=== PATIENT | male | born 1975 ===

== ENCOUNTER 2023-02-22 12:24 | Emergency (ER) | payer OTHER ==
--- OUTSIDE RECORDS SUMMARY | 2023-02-22 12:26 | XMS REPORT | Continuity of Care Document ---
:1975 Author Organization [facility] t Address [address] [facility] [address] [place] [address] Care Team Providers Name Role Phone Unavailable Unavailable Unavailable Problems This patient has no known problems. Allergies, Adverse Reactions, Alerts This patient has no known allergies or adverse reactions. Medications This patient has no known medications. Procedures This patient has no known procedures. Encounters Start End Encounter Admission Attending Care Care Encounter Source Date/Time Date/Time Type Type Clinicians Facility Department ID 2021-11-15 Outpatient [facility] [id number] Common 14:23:00 [id number] [facility] Results This patient has no known results.
[2023-02-22] MEDS ORDERED: ASPIRIN 81 MG CHEWABLE TABLET ONE (13:19)
[2023-02-22] MEDS ORDERED: PANTOPRAZOLE 40 MG INJ ONE (13:19)
[2023-02-22 13:21] LABS: Protime INR 0.92
[2023-02-22 13:22] LABS: Absolute Lymphocytes (CBC) 1.4 K/uL (0.7-4.9); Hematocrit 44.3 % (39.6-49.0); MCV 91.1 fL (80-100); MPV 7.9 fL (7.6-11.3); RBC Red Blood Cell Count 4.86 M/uL (4.33-5.43)
--- NOTE | 2023-02-22 13:24 | RAD REPORT ---
EXAM DESCRIPTION: RAD - Chest Single View - 02/22/2023 1:16 pm CLINICAL HISTORY: CHEST PAIN COMPARISON: No comparisons FINDINGS: Lines: None. Lungs: No evidence of edema or pneumonia. Pleural: No significant pleural effusions or pneumothorax. Cardiac: The heart size is within normal limits. Mediastinum: Within normal limits. Bones: No acute fractures. Other: None IMPRESSION: No acute cardiopulmonary disease.
[2023-02-22 13:31] LABS: ALT/SGPT 22 U/L (16-61); AST/SGOT 14 U/L (15-37); Albumin 3.6 g/dL (3.4-5.0); Alkaline Phosphatase 70 U/L (45-117); BUN Blood Urea Nitrogen 14 mg/dL (7-18); Bicarbonate 28 mEq/L (21-32); Bilirubin Total 0.4 mg/dL (0.2-1.0); Glomerular Filtration Rate 80 ml/min (=/>90); Glucose Level 117 mg/dL (74-106); Lipase 37 U/L (13-75); Magnesium 2.2 mg/dL (1.6-2.4); NT PRO-BNP 34 pg/mL (<125); Potassium 3.8 mEq/L (3.5-5.1); Protein, Total 7.2 g/dL (6.4-8.2); Sodium Level 137 mEq/L (136-145); Troponin High Sensitivity 3.3 pg/mL (<58.9)
[2023-02-22 13:32] LABS: Bilirubin Direct < 0.1 mg/dL (0-0.2)
[2023-02-22] MEDS ORDERED: KETOROLAC 30 MG/ML INJ ONE (14:15)
--- NOTE | 2023-02-22 15:53 | EDPHYS ---
Physician Documentation [facility] Name: Steve Andrade Age: 48 yrs Sex: Male : 1975 Arrival Date: 02/22/2023 Time: 12:24 Bed 16 Private MD: ED Physician Salbador Remy HPI: 02/22 12:40 This 48 yrs old Male presents to ER via Ambulatory with complaints of Chest Pain. snw 12:40 Onset: The symptoms/episode began/occurred acutely, 1 week(s) ago, and became snw persistent. Associated signs and symptoms: Pertinent positives: chest pain. Modifying factors: The patient symptoms are alleviated by nothing, the patient symptoms are aggravated by movement. The patient has not experienced similar symptoms in the past. Saw Dr. Eastman last week, placed on PPI.. Pt states no change with ingestion, but increased discomfort on movement. Historical: - Allergies: 12:32 No Known Allergies; vg1 - Home Meds: 12:32 pantoprazole oral [Active]; vg1 - PMHx: 12:32 Reflux; vg1 - PSHx: 12:32 None; vg1 - Immunization history:: Client reports receiving the 2nd dose of the Covid vaccine. - Social history:: Smoking status: Patient/guardian denies using tobacco, the patient reports quitting approximately 5 years ago. ROS: 12:38 Constitutional: Negative for fever, chills, and weight loss, Eyes: Negative for injury, snw pain, redness, and discharge, ENT: Negative for injury, pain, and discharge, Neck: Negative for injury, pain, and swelling, Respiratory: Negative for shortness of breath, cough, wheezing, and pleuritic chest pain, Back: Negative for injury and pain, : Negative for injury, bleeding, discharge, and swelling, MS/Extremity: Negative for injury and deformity, Skin: Negative for injury, rash, and discoloration, Neuro: Negative for headache, weakness, numbness, tingling, and seizure, Psych: Negative for depression, anxiety, suicide ideation, homicidal ideation, and hallucinations. 12:38 Cardiovascular: Positive for chest pain, with movement, of the left clavicle, anterior aspect of left upper chest and left lateral posterior chest. 12:38 Abdomen/GI: Positive for saw GI, dx with GERD. Exam: 12:38 Constitutional: This is a well developed, well nourished patient who is awake, alert, snw and in no acute distress. Head/Face: Normocephalic, atraumatic. Eyes: Pupils equal round and reactive to light, extra-ocular motions intact. Lids and lashes normal. Conjunctiva and sclera are non-icteric and not injected. Cornea within normal limits. Periorbital areas with no swelling, redness, or edema. ENT: Nares patent. No nasal discharge, no septal abnormalities noted. Tympanic membranes are normal and external auditory canals are clear. Oropharynx with no redness, swelling, or masses, exudates, or evidence of obstruction, uvula midline. Mucous membranes moist. Neck: Trachea midline, no thyromegaly or masses palpated, and no cervical lymphadenopathy. Supple, full range of motion without nuchal rigidity, or vertebral point tenderness. No Meningismus. Chest/axilla: Normal chest wall appearance and motion. Nontender with no deformity. No lesions are appreciated. Cardiovascular: Regular rate and rhythm with a normal S1 and S2. No gallops, murmurs, or rubs. Normal PMI, no JVD. No pulse deficits. Respiratory: Lungs have equal breath sounds bilaterally, clear to auscultation and percussion. No rales, rhonchi or wheezes noted. No increased work of breathing, no retractions or nasal flaring. Abdomen/GI: Soft, non-tender, with normal bowel sounds. No distension or tympany. No guarding or rebound. No evidence of tenderness throughout. Back: No spinal tenderness. No costovertebral tenderness. Full range of motion. Skin: Warm, dry with normal turgor. Normal color with no rashes, no lesions, and no evidence of cellulitis. MS/ Extremity: Pulses equal, no cyanosis. Neurovascular intact. Full, normal range of motion. Neuro: Awake and alert, GCS 15, oriented to person, place, time, and situation. Cranial nerves II-XII grossly intact. Motor strength 5/5 in all extremities. Sensory grossly intact. Cerebellar exam normal. Normal gait. Psych: Awake, alert, with orientation to person, place and time. Behavior, mood, and affect are within normal limits. Vital Signs: 12:28 BP 144 / 95; Pulse 82; Resp 18; Temp 98.4(O); Pulse Ox 100% on R/A; Weight 72.57 kg; vg1 Height 6 ft. 0 in. ; Pain 5/10; 14:12 Pulse 83; Pulse Ox 100% ; ap3 15:25 BP 121 / 83; Pulse 79; Pulse Ox 99% ; ap3 12:28 Body Mass Index 21.70 (72.57 kg, 182.88 cm) vg1 12:28 Pain Scale: Adult vg1 MDM: 12:45 Patient medically screened. snw 15:09 Data reviewed: vital signs, nurses notes. I considered the following discharge snw prescriptions or medication management in the emergency department Medications were administered in the Emergency Department. See MAR. Counseling: I had a detailed discussion with the patient and/or guardian regarding: the historical points, exam findings, and any diagnostic results supporting the discharge/admit diagnosis, the presence of at least one elevated blood pressure reading (>120/80) during this emergency department visit, lab results, radiology results, the need for outpatient follow up, for definitive care, to return to the emergency department if symptoms worsen or persist or if there are any questions or concerns that arise at home. Response to treatment: There is no appreciated change of the patient's symptoms at this time. Awaitinnd troponin. Special discussion: Based on the patient's history, exam, and Dx evaluation, there is no indication for emergent intervention or inpatient Tx. It is understood by the patient/guardian that if the Sx's persist or worsen they need to return immediately for re-evaluation. I have referred the patient to see his PCP for further evaluation of high blood pressure. Based on the history and exam findings, there is no indication for further emergent testing or inpatient evaluation. I discussed with the patient/guardian the need to see the sole inker for further evaluation of the symptoms. I discussed with the patient/guardian the need to see the primary care provider for further evaluation of the symptoms. 15:09 The patient was given aspirin in the Emergency Department. RODDY Risk Score: 1 - Recent snw [<24hrs] Severe Angina, TOTAL SCORE = 1. 15:55 Scoring Tools PERC Rule for PE Age >/= 50. snw 02/22 12:35 Order name: Basic Metabolic Panel; Complete Time: 13:34 snw 02/22 12:35 Order name: CBC with Diff; Complete Time: 13:27 snw 02/22 12:35 Order name: LFT's; Complete Time: 13:34 snw 02/22 12:35 Order name: Magnesium; Complete Time: 13:34 snw 02/22 12:35 Order name: NT PRO-BNP; Complete Time: 13:34 snw 02/22 12:35 Order name: PT-INR; Complete Time: 13:21 snw 02/22 12:35 Order name: Troponin HS; Complete Time: 13:34 snw 02/22 12:35 Order name: Lipase; Complete Time: 13:34 snw 02/22 14:31 Order name: Troponin High Sensitivity; Complete Time: 15:33 snw 02/22 12:35 Order name: XRAY Chest (1 view); Complete Time: 13:27 snw 02/22 12:35 Order name: EKG; Complete Time: 12:36 snw 02/22 14:31 Order name: EKG; Complete Time: 14:32 snw 02/22 12:35 Order name: Cardiac monitoring; Complete Time: 12:53 snw 02/22 12:35 Order name: EKG - Nurse/Tech; Complete Time: 12:53 snw 02/22 12:35 Order name: IV Saline Lock; Complete Time: 13:06 snw 02/22 12:35 Order name: Labs collected and sent; Complete Time: 13:06 snw 02/22 12:35 Order name: O2 Per Protocol; Complete Time: 12:53 snw 02/22 12:35 Order name: O2 Sat Monitoring; Complete Time: 12:53 snw 02/22 13:36 Order name: Repeat Cardiac Enzymes at: 1500, please also repeat EKG at that time; snw Complete Time: 15:02/22 14:31 Order name: EKG - Nurse/Tech; Complete Time: 15:09 snw EC:45 Rate is 78 beats/min. Rhythm is regular. QRS [place] is Normal. SC interval is normal. QRS snw interval is normal. Clinical impression: NSR w/ Non-specific ST/T Changes. 12:45 Rate is 75 beats/min. Rhythm is regular. QRS [place] is Normal. SC interval is normal. QRS snw interval is normal. Clinical impression: NSR w/ Non-specific ST/T Changes. Administered Medications: 13:18 Drug: Aspirin PO Chewable Tablet 324 mg Route: PO; ap3 14:12 Follow up: Response: No adverse reaction ap3 13:18 Drug: Pantoprazole IVP 40 mg Route: IVP; Site: left antecubital; ap3 14:12 Follow up: Response: No adverse reaction ap3 14:12 Drug: Ketorolac IVP 15 mg Route: IVP; Site: left antecubital; ap3 15:09 Follow up: Response: No adverse reaction; Pain is decreased ap3 Disposition Summary: 02/22/23 15:52 Discharge Ordered Location: Home snw Condition: Stable snw Diagnosis - Chest pain on breathing snw Followup: snw - With: Emergency Department - When: As needed - Reason: Worsening of condition Followup: snw - With: Private Physician - When: 2 - 3 days - Reason: Recheck today's complaints, Continuance of care, Re-evaluation by your physician Discharge Instructions: - Discharge Summary Sheet snw - Hypertension, Adult snw - Costochondritis, [id number] snw - Nonspecific Chest Pain, Adult, [id number] snw - DASH Eating Plan snw - Form - Blood Pressure Record Sheet snw - Preventing Hypertension snw Forms: - Work release form snw - Medication Reconciliation Form snw - Thank You Letter snw - Antibiotic Education snw - Prescription Opioid Use snw Prescriptions: - Mobic 7.5 mg Oral Tablet - take 1 tablet by ORAL route once daily take with food; 20 tablet; Refills: 0, snw Product Selection Permitted Signatures: Dispatcher [employer] Daily Metcalf FNP-C ELECTRIC FRYING PAN REPAIRER-Csnw Chery Payne RN RN ap3 Milagros Lundberg RN RN vg1
--- NOTE | 2023-02-22 15:53 | ER ---
Nurse's Notes [facility] Name: Steve Andrade Age: 48 yrs Sex: Male : 1975 Arrival Date: 02/22/2023 Time: 12:24 Bed 16 Private MD: Diagnosis: Chest pain on breathing Presentation: 02/22 12:28 Chief complaint:. Coronavirus screen: Vaccine status: Patient reports receiving the 2nd vg1 dose of the covid vaccine. Client denies travel out of the [place] in the last 14 days. Ebola Screen: Patient negative for fever greater than or equal to 101.5 degrees Fahrenheit, and additional compatible Ebola Virus Disease symptoms Patient denies exposure to infectious person. Patient denies travel to an Ebola-affected area in the 21 days before illness onset. Initial Sepsis Screen: Does the patient meet any 2 criteria? No. Patient's initial sepsis screen is negative. Does the patient have a suspected source of infection? No. Patient's initial sepsis screen is negative. Risk Assessment: Do you want to hurt yourself or someone else? Patient reports no desire to harm self or others. Onset of symptoms was February 15, 2023. 12:28 Method Of Arrival: Ambulatory vg1 12:28 Acuity: LEE ANN 2 vg1 Triage Assessment: 12:32 General: Appears in no apparent distress. uncomfortable, Behavior is calm, cooperative. vg1 Pain: Complains of pain in chest Pain does not radiate. Pain currently is 5 out of 10 on a pain scale. Neuro: Level of Consciousness is awake, alert, obeys commands, Oriented to person, place, time, situation. Cardiovascular: Patient's skin is warm and dry. Respiratory: Reports pain with respiration Airway is patent Respiratory effort is even, unlabored. Historical: - Allergies: 12:32 No Known Allergies; vg1 - Home Meds: 12:32 pantoprazole oral [Active]; vg1 - PMHx: 12:32 Reflux; vg1 - PSHx: 12:32 None; vg1 - Immunization history:: Client reports receiving the 2nd dose of the Covid vaccine. - Social history:: Smoking status: Patient/guardian denies using tobacco, the patient reports quitting approximately 5 years ago. Screenin:49 [facility] ED Fall Risk Assessment (Adult) History of falling in the last 3 months, ap3 including since admission No falls in past 3 months (0 pts). Abuse screen: Denies threats or abuse. Nutritional screening: No deficits noted. Tuberculosis screening: No symptoms or risk factors identified. Assessment: 16:50 Pain: Pain began gradually. ap3 Vital Signs: 12:28 BP 144 / 95; Pulse 82; Resp 18; Temp 98.4(O); Pulse Ox 100% on R/A; Weight 72.57 kg; vg1 Height 6 ft. 0 in. ; Pain 5/10; 14:12 Pulse 83; Pulse Ox 100% ; ap3 15:25 BP 121 / 83; Pulse 79; Pulse Ox 99% ; ap3 12:28 Body Mass Index 21.70 (72.57 kg, 182.88 cm) vg1 12:28 Pain Scale: Adult vg1 ED Course: 12:25 Patient arrived in ED. ts1 12:25 Daily Bronson [facility]-C [facility] snw 12:25 Salbador Remy MD is Attending Physician. snw 12:30 Triage completed. vg1 12:32 Arm band placed on. vg1 12:38 Chery Payne, RN is Primary Nurse. ap3 13:04 Initial lab(s) drawn, by wy, sent to lab. EKG done, by ED staff, reviewed by Daily ANGEL. Inserted saline lock: 20 gauge in left antecubital area, using aseptic technique. Blood collected. 13:05 Patient has correct armband on for positive identification. Bed in low position. Call tm3 light in reach. Side rails up X 1. Adult w/ patient. Warm blanket given. Client placed on continuous cardiac and pulse oximetry monitoring. NIBP monitoring applied. monitor car operator on. Pulse ox on. NIBP on. 13:06 Lipase Sent. tm3 13:06 Basic Metabolic Panel Sent. tm3 13:06 CBC with Diff Sent. tm3 13:06 LFT's Sent. tm3 13:06 Magnesium Sent. tm3 13:06 NT PRO-BNP Sent. tm3 13:06 PT-INR Sent. tm3 13:06 Troponin HS Sent. tm3 13:18 XRAY Chest (1 view) In Process Unspecified. EDMS 16:50 No provider procedures requiring assistance completed. IV discontinued, intact, ap3 bleeding controlled, No redness/swelling at site. Pressure dressing applied. Patient maintains SpO2 saturation greater than 95% on room air. Administered Medications: 13:18 Drug: Aspirin PO Chewable Tablet 324 mg Route: PO; ap3 14:12 Follow up: Response: No adverse reaction ap3 13:18 Drug: Pantoprazole IVP 40 mg Route: IVP; Site: left antecubital; ap3 14:12 Follow up: Response: No adverse reaction ap3 14:12 Drug: Ketorolac IVP 15 mg Route: IVP; Site: left antecubital; ap3 15:09 Follow up: Response: No adverse reaction; Pain is decreased ap3 Medication: 16:50 VIS not applicable for this client. ap3 Outcome: 15:52 Discharge ordered by . snw 16:50 Discharged to home ambulatory, with family. ap3 16:50 Condition: good 16:50 Discharge instructions given to patient, Instructed on discharge instructions, follow up and referral plans. Demonstrated understanding of instructions, follow-up care, medications, Prescriptions given X 1. 16:50 Patient left the ED. ap3 Signatures: Dispatcher [employer] EDMS Jemal Yi tm3 Daily Bronson, WEAPONS SYSTEM INSTRUMENT MECHANIC-C WEAPONS SYSTEM INSTRUMENT MECHANIC-Edw Chery Payne RN RN ap3 Milagros Lundberg RN RN vg1 Pam Perkins PAS PAS ts1
[2023-02-22 16:55] VITALS: TEMP 98.4
[2023-02-22 16:58] VITALS: BP 121/83; O2SAT 99
--- NOTE | 2023-02-23 07:10 | EKG ---
Test Date: 2023-02-22 Test Time: 15:03:31 Linen Room Worker: ALP MEASUREMENT RESULTS: Intervals: Rate: 75 NV: 160 QRSD: 92 QT: 340 QTc: 379 [place]: P: 61 NV: 160 QRS: 69 T: 67 INTERPRETIVE STATEMENTS: Normal sinus rhythm Normal ECG Compared to ECG 02/22/2023 12:43:58 T-wave abnormality no longer present Electronically Signed On 02-23-23 07:09:27 CDT by Joce Serna
--- NOTE | 2023-02-23 07:11 | EKG ---
Test Date: 2023-02-22 Test Time: 12:43:58 Twister Tender: LAURA MEASUREMENT RESULTS: Intervals: Rate: 78 TX: 156 QRSD: 90 QT: 368 QTc: 419 [place]: P: 61 TX: 156 QRS: 67 T: 55 INTERPRETIVE STATEMENTS: Normal sinus rhythm Nonspecific T wave abnormality Abnormal ECG No previous ECG available for comparison Electronically Signed On 02-23-23 07:09:31 CDT by Joce Serna
== END 2023-02-22 16:50 | disposition home or self-care (01) ==
LOC: ER 12:24
DX: R07.1 Chest pain on breathing (principal); K21.9 Gastro-esophageal reflux disease without esophagitis
CPT/HCPCS: 93005 ×2; 85025; 80048; 36415; 83735; 85610; 80076; 84484 ×2; 83690; 83880; 71045; 96375; 96374; 99285; C9113